=== PATIENT | female | born 1980 | race Caucasian/White ===

== ENCOUNTER 2020-06-02 09:00 | Outpatient (RCR) | payer OTHER, SELFPAY ==
--- NOTE | 2020-06-10 15:15 | MHC.PT.DC ---
[facility] [place] Office [place] Office [place] Office [address] Cheng Benjamin [address] [phone] F: [phone] F: [phone] F: [phone] F: [phone] Physical Therapy Discharge Report Diagnosis: Date of Surgery: N/A Date of Evaluation: 04/07/20 Date of Discharge: 06/02/20 Treatments to Date: 15 Cancellations to Date: 0 No Shows to Date: 1 Discharge Status: Achieved Goals Improved Function Independent with HEP Discharge Summary: The patient has improved in her pain severity, frequency of pain, and ability to tolerate therapeutic exercises and activities. She reported a statistically significant improvement on her self-reported outcome measure, LEFI. She has achieved all goals established at initial evaluation. She is independent with her home exercise program and has appropriate therabands. She is discharged from this physical therapy plan of care to her home exercise program. Electronically signed by: Pearl Horan PT, DPT Please sign and return to therapist. Thank you for your referral.
== END 2020-06-02 11:30 | disposition other institution (70) ==
LOC: HO.PT 09:00
PROVIDERS: Visit Provider Physician Assistant
DX: S82.311D Torus fracture of lower end of right tibia, subsequent encounter for fracture with routine healing (principal); X58.XXXD Exposure to other specified factors, subsequent encounter
CPT/HCPCS: 97110; 97112; 97530

== ENCOUNTER 2020-07-02 15:09 | Emergency (ER) | payer OTHER, SELFPAY ==
[2020-07-02 15:16] VITALS: PULSE 92; O2SAT 99
[2020-07-02 16:00] VITALS: BP 128/86; PULSE 92; RESP 16; TEMP 36.8; O2SAT 98; BMI 32.2
--- NOTE | 2020-07-02 16:27 | ED_ITS ---
HPI - Allergic Reaction General Chief complaint: Allergic Reaction Stated complaint: allergic reaction Time Seen by Provider: 07/02/20 16:22 History of Present Illness HPI narrative: Patient complains of itchy rash starting 6 days and worsening over the past 6 days, there is no shortness of breath no throat swelling, she is not sure what caused it and the symptoms are mild There is no fever no chills no cough Related Data Previous Rx's Medication Instructions Recorded cetirizine 10 mg PO DAILY PRN #14 cap 07/02/20 diphenhydramine HCl [Benadryl] 50 mg PO BEDTIME PRN #20 cap 07/02/20 prednisone 60 mg PO DAILY 4 Days #12 tab 07/02/20 Allergies Allergy/AdvReac Type Severity Reaction Status Date / Time No Known Allergies Allergy Unverified 04/29/20 18:47 Review of Systems Review of Systems: ROS is positive for rash There is no fever no chills no dizziness no weakness no swelling of the throat no difficulty speaking or breathing no chest pain no shortness of breath, no joint pains Yes all other systems are reviewed and are negative [facility] Past Medical History Source: nursing notes reviewed Medical History (Updated 07/02/20 @ 16:28 by DEUCE Christopher) Asthma Back pain Depression Fibromyalgia Social History Social History Smoking Status: Never smoker Use of substances other than those prescribed or required for medical reasons: No Advance Directives: No Advance Directives Information Provided: No Physical Exam Vital Signs: Vital Signs: Last Vital Signs Temp 98.2 F 07/02/20 16:00 Pulse 92 07/02/20 16:00 Resp 16 07/02/20 16:00 BP 128/86 07/02/20 16:00 Pulse Ox 98 07/02/20 16:00 Body Mass Index 32.2 General appearance comfortable cooperative no acute distress, A&O x3 The eyes are clear no redness or discharge The pharynx is clear with no redness exudate swelling, voice was normal, mucous membranes well hydrated The chest is clear to auscultation bilaterally with full symmetric with good breath sounds The heart no murmur The skin had an order cardial rash on arms cheeks legs, no evidence of cellulitis no petechiae Extremities full range of motion x4 Neuro no focal deficits Discharge Plan Discharge Clinical Impression: Urticaria Patient Disposition: Home, Self-Care Additional Instructions: Follow with primary care doctor in 2-3 days if not better Return to ER any time any worse condition or concerns Prescriptions: New cetirizine 10 mg capsule 10 mg PO DAILY PRN (Reason: allergy symptoms) Qty: 14 RF: 0 prednisone 20 mg tablet 60 mg PO DAILY 4 Days Qty: 12 RF: 0 diphenhydramine HCl [Benadryl] 25 mg capsule 50 mg PO BEDTIME PRN (Reason: itching) Qty: 20 RF: 0 Interventions: ED Discharge Assessment Last Done: 07/02/20 17:02 Discharge Date/Time: 07/02/20 17:02
[2020-07-02] MEDS: predniSONE 20 MG TABLET 60 MG PO (16:51)
[2020-07-02] MEDS: Loratadine 10 MG TABLET PO (16:51)
== END 2020-07-02 17:02 | disposition home or self-care (01) ==
PROVIDERS: Emergency Provider Internal Medicine
DX: L50.9 Urticaria, unspecified (principal); Z79.899 Other long term (current) drug therapy
CPT/HCPCS: 99283; 99284

== ENCOUNTER 2020-08-18 16:49 | Emergency (ER) | payer OTHER, SELFPAY ==
[2020-08-18 19:17] VITALS: BP 142/67; PULSE 84; TEMP 36.6; O2SAT 100; BMI 35.4
--- NOTE | 2020-08-18 19:30 | ED.GENADULT ---
HPI - General Adult General Chief complaint: General Medical Stated complaint: swelling,back pain Time Seen by Provider: 08/18/20 19:30 Source: patient Mode of arrival: ambulatory Limitations: no limitations History of Present Illness HPI narrative: Patient having leg edema for last 2 weeks facially on the evening time also noticed low back pain. Abdominal pain no shortness of breath no chest pain no liver problems no kidney problems in the past Onset (ago): week(s) (2) Related Data Previous Rx's Medication Instructions Recorded cetirizine 10 mg PO DAILY PRN #14 cap 07/02/20 diphenhydramine HCl [Benadryl] 50 mg PO BEDTIME PRN #20 cap 07/02/20 prednisone 60 mg PO DAILY 4 Days #12 tab 07/02/20 Allergies Allergy/AdvReac Type Severity Reaction Status Date / Time No Known Allergies Allergy Verified 08/18/20 19:16 Review of Systems Review of Systems: Constitutional : No Weight loss, No Fever, No Chills ENT/Mouth : No sore throat, No Rhinorrhea Eyes: No Eye Pain, No Swelling Cardiovascular : No Chest Pain, no palpitations Respiratory : No Cough, No Sputum, no shortness of breath Gastrointestinal : no Nausea, No Vomiting, No Diarrhea, No abdominal Pain, no black stools Genitourinary : No Dysuria, No Urinary Frequency Musculoskeletal : No joint pain, No Myalgias, No Joint Swelling Skin : No Skin Lesions, No rash Neuro : No Weakness, No Numbness, No Dizziness, No Headache Psych : No Anxiety/Panic, No Depression Heme/Lymph: No Bruising, No Lymphadenopathy Endocrine : No Polyuria, No Polydipsia All other systems reviewed and are negative [facility] Past Medical History Medical History Asthma Back pain Depression Fibromyalgia Social History Social History Smoking Status: Never smoker Use of substances other than those prescribed or required for medical reasons: No Advance Directives: No Advance Directives Information Provided: No Physical Exam Vital Signs: Vital Signs: Last Vital Signs Temp 97.9 F 08/18/20 19:17 Pulse 84 08/18/20 20:00 Resp 18 08/18/20 20:00 BP 112/76 08/18/20 20:00 Pulse Ox 100 08/18/20 20:00 Body Mass Index 35.4 Appearance: Alert. Oriented X3. No acute distress. Eyes: Pupils equal, round and reactive to light. ENT: Pharynx normal. Neck: Normal inspection. Neck supple. CVS: Normal heart rate and rhythm. Pulses normal. Respiratory: No respiratory distress. Breath sounds normal. Abdomen: Soft and nontender. Bowel sounds are present, no mass palpable, no CVA tenderness Skin: Skin warm and dry. Normal skin color. Normal skin turgor. Extremities: 2+ lower extremity edema. Neuro: Oriented X 3. No motor deficit. No sensory deficit. Course Course Course Narrative: Patient with pitting lower extremity edema with no findings of congestive heart failure or liver problems likely orthostatic dependent pedal edema with this prescribe her hydrochlorothiazide daily Medical Decision Making Lab Data Result diagrams: 08/18/20 20:12 08/18/20 20:12 Labs: Lab Results 08/18/20 08/18/20 08/18/20 Range/Units 20:12 20:12 20:12 WBC 11.2 H (4.8-10.8) X10*3/uL RBC 4.27 (4.20-5.50) X10*6/uL Hgb 11.5 L (12.0-16.0) g/dl Hct 36.6 L (37-47) % MCV 85.7 (80-98) fL MCH 26.9 L (27.0-33.0) pg MCHC 31.4 (31.0-35.0) g/dl RDW 14.6 (11.0-16.0) % Plt Count 243 (160-400) X10*3/uL MPV 10.4 (9.4-12.3) fL Immature Gran % (Auto) 0.3 (0.0-0.4) % Neut % (Auto) 65.1 (45-73) % Lymph % (Auto) 26.4 (20-40) % Cottle % (Auto) 5.5 (2-11) % Eos % (Auto) 2.5 (0-4) % Baso % (Auto) 0.2 (0-2) % Lymph # (Auto) 3.0 (1.2-4.9) X10*3/uL Cottle # (Auto) 0.6 (0.1-1.2) X10*3/uL Eos # (Auto) 0.3 (0.0-0.4) X10*3/uL Baso # (Auto) 0.0 (0.0-0.2) X10*3/uL Abs Immat Gran (auto) 0.03 (0.00-0.03) X10*3/uL Absolute Neuts (auto) 7.3 (2.0-8.3) X10*3/uL Absolute Nucleated RBC 0.000 (0.0-0.012) X10*3/uL Nucleated RBC % (auto) 0.0 (0.0-0.2) /100WBC Hold Blue Top SEE NOTE Sodium 139 (135-145) mmol/L Potassium 4.1 (3.3-5.1) mmol/l Chloride 106 (96-108) mmol/L Carbon Dioxide 24 (22-29) mmol/L Anion Gap 13 (12-20) BUN 13 (9-16) mg/dL Creatinine 0.91 (0.5-1.4) mg/dL Estim Creat Clear Calc 100.1 Estimated GFR > 60 Random Glucose 141 H (60-115) mg/dL Calcium 8.3 L (8.4-10.2) mg/dL Total Bilirubin 0.2 (0.0-1.0) mg/dL AST 20 (5-31) U/L ALT 21 (0-31) U/L Alkaline Phosphatase 104 (39-117) U/L B-Natriuretic Peptide (<100) pg/mL Total Protein 6.1 L (6.5-8.0) g/dL Albumin 3.7 (3.5-5.0) g/dL TSH 1.88 (0.32-4.0) uIU/mL Urine Color Urine Appearance Urine pH (5.0-8.0) Ur Specific [place] (1.005-1.025) Urine Protein (NEG-TRACE) MG/DL Urine Glucose (UA) (NEG) MG/DL Urine Ketones (NEG) MG/DL Urine Blood (NEG) Urine Nitrite (NEG) Ur Leukocyte Esterase (NEG) Urine Test (NEGATIVE) 08/18/20 08/18/20 Range/Units 20:12 20:12 WBC (4.8-10.8) X10*3/uL RBC (4.20-5.50) X10*6/uL Hgb (12.0-16.0) g/dl Hct (37-47) % MCV (80-98) fL MCH (27.0-33.0) pg MCHC (31.0-35.0) g/dl RDW (11.0-16.0) % Plt Count (160-400) X10*3/uL MPV (9.4-12.3) fL Immature Gran % (Auto) (0.0-0.4) % Neut % (Auto) (45-73) % Lymph % (Auto) (20-40) % Cottle % (Auto) (2-11) % Eos % (Auto) (0-4) % Baso % (Auto) (0-2) % Lymph # (Auto) (1.2-4.9) X10*3/uL Cottle # (Auto) (0.1-1.2) X10*3/uL Eos # (Auto) (0.0-0.4) X10*3/uL Baso # (Auto) (0.0-0.2) X10*3/uL Abs Immat Gran (auto) (0.00-0.03) X10*3/uL Absolute Neuts (auto) (2.0-8.3) X10*3/uL Absolute Nucleated RBC (0.0-0.012) X10*3/uL Nucleated RBC % (auto) (0.0-0.2) /100WBC Hold Blue Top Sodium (135-145) mmol/L Potassium (3.3-5.1) mmol/l Chloride (96-108) mmol/L Carbon Dioxide (22-29) mmol/L Anion Gap (12-20) BUN (9-16) mg/dL Creatinine (0.5-1.4) mg/dL Estim Creat Clear Calc Estimated GFR Random Glucose (60-115) mg/dL Calcium (8.4-10.2) mg/dL Total Bilirubin (0.0-1.0) mg/dL AST (5-31) U/L ALT (0-31) U/L Alkaline Phosphatase (39-117) U/L B-Natriuretic Peptide < 10 (<100) pg/mL Total Protein (6.5-8.0) g/dL Albumin (3.5-5.0) g/dL TSH (0.32-4.0) uIU/mL Urine Color YELLOW Urine Appearance CLEAR Urine pH 6.0 (5.0-8.0) Ur Specific [place] 1.025 (1.005-1.025) Urine Protein NEG (NEG-TRACE) MG/DL Urine Glucose (UA) NEG (NEG) MG/DL Urine Ketones NEG (NEG) MG/DL Urine Blood NEG (NEG) Urine Nitrite NEG (NEG) Ur Leukocyte Esterase NEG (NEG) Urine Test NEGATIVE (NEGATIVE) Discharge Plan Discharge Prescriptions: No Action cetirizine 10 mg capsule 10 mg PO DAILY PRN (Reason: allergy symptoms) Qty: 14 RF: 0 prednisone 20 mg tablet 60 mg PO DAILY 4 Days Qty: 12 RF: 0 diphenhydramine HCl [Benadryl] 25 mg capsule 50 mg PO BEDTIME PRN (Reason: itching) Qty: 20 RF: 0
[2020-08-18 20:00] VITALS: BP 112/76; PULSE 84; RESP 18; O2SAT 100
[2020-08-18 20:20] LABS: Basophils Percent Auto 0.2 % (0-2); Eosinophils Absolute Auto 0.3 X10*3/uL (0.0-0.4); Eosinophils Percent Auto 2.5 % (0-4); Hematocrit 36.6 % (37-47); Hemoglobin 11.5 g/dl (12.0-16.0); Imm Gran Abs Auto 0.03 X10*3/uL (0.00-0.03); Imm Gran Pct Auto 0.3 % (0.0-0.4); Lymphocytes Percent Auto 26.4 % (20-40); MANUAL DIFF FLAG NO; Mean Corpuscular HGB Conc 31.4 g/dl (31.0-35.0); Mean Corpuscular Hemoglobin 26.9 pg (27.0-33.0); Mean Corpuscular Volume 85.7 fL (80-98); Mean Platelet Volume 10.4 fL (9.4-12.3); Monocytes Absolute Auto 0.6 X10*3/uL (0.1-1.2); Monocytes Percent Auto 5.5 % (2-11); Neutrophils Absolute Auto 7.3 X10*3/uL (2.0-8.3); Neutrophils Percent Auto 65.1 % (45-73); Platelet Count 243 X10*3/uL (160-400); Red Blood Count 4.27 X10*6/uL (4.20-5.50); Red Cell Distribution Width 14.6 % (11.0-16.0); White Blood Count 11.2 X10*3/uL (4.8-10.8)
[2020-08-18 20:22] LABS: Glucose Urine UA NEG (NEG); Leukocyte Esterase Urine NEG (NEG); Nitrite Urine NEG (NEG); Specific Gravity - Urine 1.025 (1.005-1.025); Urine Blood NEG (NEG); Urine Ketones NEG (NEG); Urine Protein NEG (NEG-TRACE)
[2020-08-18 20:23] LABS: Appearance Urine CLEAR; Color Urine YELLOW
[2020-08-18 20:26] LABS: UPreg QC Valid YES; Urine Pregnancy NEGATIVE (NEGATIVE)
[2020-08-18 20:54] LABS: Alanine Aminotransferase 21 U/L (0-31); Albumin Level 3.7 g/dL (3.5-5.0); Alkaline Phosphatase 104 U/L (39-117); Anion Gap 13 (12-20); Aspartate Amino Transferase 20 U/L (5-31); Bilirubin Total 0.2 mg/dL (0.0-1.0); Blood Urea Nitrogen 13 mg/dL (9-16); Calcium 8.3 mg/dL (8.4-10.2); Carbon Dioxide 24 mmol/L (22-29); Chloride 106 mmol/L (96-108); Creatinine Clr Calc Pharmacy 100.1; Estimated Glomerular Filt Rate > 60; Glucose Random 141 mg/dL (60-115); Potassium 4.1 mmol/l (3.3-5.1); Sodium 139 mmol/L (135-145); Total Protein 6.1 g/dL (6.5-8.0)
[2020-08-18 20:59] LABS: B Type Natriuretic Peptide < 10 pg/mL (<100)
[2020-08-18 21:14] LABS: Thyroid Stimulating Hormone 1.88 uIU/mL (0.32-4.0)
[2020-08-18 21:59] VITALS: BP 110/74; PULSE 82; RESP 17; TEMP 36.4; O2SAT 99
== END 2020-08-18 22:01 | disposition home or self-care (01) ==
PROVIDERS: Emergency Provider Internal Medicine
DX: M54.5 Low back pain (principal); Z79.899 Other long term (current) drug therapy
CPT/HCPCS: 36415; 80053; 81003; 81025; 83880; 84443; 85025; 99283; 99284

== ENCOUNTER 2021-02-08 13:11 | Emergency (ER) | payer OTHER, SELFPAY ==
[2021-02-08 13:44] VITALS: BP 127/80; PULSE 79; RESP 18; TEMP 36.6; O2SAT 100; BMI 33.8
--- NOTE | 2021-02-08 16:31 | ED.GENADULT ---
HPI - General Adult General Chief complaint: General Medical Stated complaint: neck injury Time Seen by Provider: 02/08/21 16:21 Source: patient Mode of arrival: ambulatory History of Present Illness HPI narrative: 40-year-old female with a past medical history of asthma, back pain, depression, fibromyalgia, presenting to the ED complaining of left-sided neck /ear pain radiating to head/face x1 day. Reports bump/ inflamed lymph node beneath ear. Denies drainage from ear, hearing loss, difficulty/ pain with swallowing, fever, chills, neck trauma/ falls or injury. Admits pain worse with neck movement to right side Related Data Previous Rx's Medication Instructions Recorded cetirizine 10 mg PO DAILY PRN #14 cap 07/02/20 diphenhydramine HCl [Benadryl] 50 mg PO BEDTIME PRN #20 cap 07/02/20 prednisone 60 mg PO DAILY 4 Days #12 tab 07/02/20 hydrochlorothiazide 25 mg PO QAM #30 tab 08/18/20 acetaminophen [Tylenol Extra 500 mg PO Q6H PRN #20 tab 02/08/21 Strength] amoxicillin-pot clavulanate 1 tab PO Q12H 7 Days #14 tab 02/08/21 [Augmentin] fluticasone propionate [Flonase 2 spray INTRANASAL DAILY #16 g 02/08/21 Allergy Relief] naproxen 500 mg PO BID PRN 10 Days #20 tab 02/08/21 Allergies Allergy/AdvReac Type Severity Reaction Status Date / Time No Known Allergies Allergy Verified 08/18/20 19:16 Review of Systems Review of Systems: Constitutional: No Fever, No Chills ENT/Mouth: + Ear Pain, No Nasal Congestion, No Sinus Pain, No Hoarseness, No sore throat, No Swallowing Difficulty Cardiovascular: No Chest Pain, No SOB Respiratory: No Cough, No Sputum Musculoskeletal: +neck pain Skin: No Skin Lesions, No rash Neuro: No Weakness, No Numbness Yes all other systems are reviewed and are negative [facility] Past Medical History Attestation statement: The following information was validated with the patient. Medical History Asthma Back pain Depression Fibromyalgia Social History Social History Advance Directives: No Advance Directives Information Provided: No Patient : No Physical Exam Vital Signs: Vital Signs: Last Vital Signs Temp 97.9 F 02/08/21 13:44 Pulse 79 02/08/21 13:44 Resp 18 02/08/21 13:44 BP 127/80 02/08/21 13:44 Pulse Ox 100 02/08/21 13:44 Body Mass Index 33.8 Const: General: cooperative, healthy appearing, comfortable and no acute distress Orientation/consciousness: patient oriented x3 Limitations: no limitations HENMT: Other: left TM slightly cloudy, no erythema, no bulging, no drainage right TM WNL Head: Yes normal to inspection Ears: hearing grossly normal bilaterally, normal mastoids bilaterally and periauricular adenopathy on the left ( tender to palpation. No erythema) General nose exam: Normal external nose present and Normal nares present Face and sinus: Yes normal facial exam Mouth: Normal oral and palatal mucosa present Throat: Yes posterior oropharynx normal, Yes tonsils normal, Yes uvula midline and No peritonsillar mass Eyes: General: appearance normal, both eyes and all related structures EOM: EOMs intact bilaterally Neck: Other: no midline cervical spinous tenderness. No left-sided neck swelling / erythema or deformity. left side of neck MSK tenderness to palpation pain elicited on rightward movement of neck Neck: Yes normal visual inspection, Yes no meningeal signs, Yes supple and No anterior neck swelling Chest: Chest palpation & inspection: normal inspection of the chest Resp: Effort & Inspection: normal respiratory effort Auscultation: clear to auscultation bilaterally Cardio: Rate: regular rate Skin: Rashes: no rashes Wounds: no wounds Neuro: General: patient oriented x3 and no meningeal signs Extrem: General: Yes normal to inspection Medical Decision Making MDM Narrative Medical decision making narrative: 40-year-old female with a past medical history of asthma, back pain, depression, fibromyalgia, presenting to the ED complaining of left-sided neck /ear pain radiating to head/face x1 day. on exam VSS, NAD/ well-appearing, physical exam as above. Concern for early otitis media vs unilateral lymphadenopathy vs MSK pain. Low concern for mastoiditis Plan: 1st dose of Augmentin given in the ED Discharge Plan Discharge Clinical Impression: Lymphadenopathy Patient Disposition: Home, Self-Care Instructions: Lymphadenopathy (ED) Additional Instructions: you have one-sided lymphadenopathy, in her eardrum is cloudy which could likely represent an early infection. Augmentin as an antibiotic, take as prescribed. In addition Flonase nasal decongestion spray. Naproxen as an anti-inflammatory/ pain medication, take with food. In addition take Tylenol. Follow up with her primary care doctor In the next couple days. If her symptoms persist or worsen, he develops fever, drainage from a here, swelling, redness, or pain as worsening please return to the ED tiene linfadenopat?a unilateral, el t?mpano est? turbio, lo que probablemente podr?a representar nicole infecci?n temprana. Augmentin chika antibi?tate, jose seg?n lo prescrito. Adem?s Flonase spray nasal descongestionante. El naproxeno chika medicamento antiinflamatorio / analg?sico, t?spencer con las comidas. Adem?s, tome Tylenol. Aziza un seguimiento con connell m?dico de atenci?n primaria en los pr?ximos d?as. Si jonna s?ntomas persisten o empeoran, ?l desarrolla fiebre, supuraci?n de un lugar, hinchaz?n, enrojecimiento o dolor a medida que empeora, por favor regrese al servicio de urgencias. Prescriptions: New acetaminophen [Tylenol Extra Strength] 500 mg tablet 500 mg PO Q6H PRN (Reason: pain or fever) Qty: 20 RF: 0 fluticasone propionate [Flonase Allergy Relief] 50 mcg/actuation spray,suspension 2 spray intranasal DAILY Qty: 16 RF: 0 naproxen 500 mg tablet 500 mg PO BID PRN (Reason: pain) 10 Days Qty: 20 RF: 0 amoxicillin-pot clavulanate [Augmentin] 875-125 mg tablet 1 tab PO Q12H 7 Days Qty: 14 RF: 0 No Action cetirizine 10 mg capsule 10 mg PO DAILY PRN (Reason: allergy symptoms) Qty: 14 RF: 0 prednisone 20 mg tablet 60 mg PO DAILY 4 Days Qty: 12 RF: 0 diphenhydramine HCl [Benadryl] 25 mg capsule 50 mg PO BEDTIME PRN (Reason: itching) Qty: 20 RF: 0 hydrochlorothiazide 25 mg tablet 25 mg PO QAM Qty: 30 RF: 0 Referrals: Physician,Unknown [Primary Care Provider] - 2 days Print Language: Japanese
[2021-02-08] MEDS: Amoxicillin/Potassium Clav 875 MG TABLET PO (16:55)
== END 2021-02-08 16:57 | disposition home or self-care (01) ==
PROVIDERS: Emergency Provider Emergency Medicine Emergency Medical Services
DX: R59.1 Generalized enlarged lymph nodes (principal); J45.909 Unspecified asthma, uncomplicated
CPT/HCPCS: 99283

== ENCOUNTER 2023-08-18 12:52 | Emergency (ER) | payer OTHER, SELFPAY ==
[2023-08-18 13:29] VITALS: BP 132/81; PULSE 84; RESP 18; TEMP 36.8; O2SAT 100; BMI 21.9
--- NOTE | 2023-08-18 13:31 | ED.SKABFB ---
HPI - Skin/Abscess/Foreign Bdy General Chief complaint: Skin/Abscess/Foreign Body Stated complaint: rash Time Seen by Provider: 08/18/23 15:25 Source: patient and drafter Mode of arrival: ambulatory Limitations: language barrier History of Present Illness HPI narrative: Patient is a 42 year old assigned female at with no reported medical history presenting to the emergency department today with pain after shaving in the lower vaginal area. Patient states that 3 days ago she was shaving and has had pain in the lower right vaginal area. Patient denies any dizziness, lightheadedness, abdominal pain, nausea, vomiting, fever, chills, blurry vision, double vision, loss of vision, chest pain, difficulty breathing, shortness of breath, back pain, night sweats, pain with urination, increased urinary frequency, increased urinary urgency, blood in her urine or stool, syncope or a near syncopal episode, bowel incontinence, bladder incontinence, bowel retention, bladder retention, or any other complaints at this time. Onset (ago): day(s) (3) Location: genitals Severity: mild Relieving factors: none Exacerbating factors: none Context: none Associated symptoms: denies other symptoms Treatments prior to arrival: none Related Data Previous Rx's Medication Instructions Recorded cetirizine 10 mg capsule 10 mg PO DAILY PRN allergy 07/02/20 symptoms #14 caps diphenhydramine HCl 25 mg capsule 50 mg (2 x 25 mg) PO BEDTIME PRN 07/02/20 (Benadryl) itching #20 caps prednisone 20 mg tablet 60 mg (3 x 20 mg) PO DAILY 4 days 07/02/20 #12 tabs hydrochlorothiazide 25 mg tablet 25 mg PO QAM #30 tabs 08/18/20 acetaminophen 500 mg tablet 500 mg PO Q6H PRN pain or fever 02/08/21 (Tylenol Extra Strength) #20 tabs amoxicillin 875 mg-potassium 1 tab PO Q12H 7 days #14 tabs 02/08/21 clavulanate 125 mg tablet (Augmentin) fluticasone propionate 50 2 spray intranasal DAILY #16 grams 02/08/21 mcg/actuation nasal spray,suspension (Flonase Allergy Relief) naproxen 500 mg tablet 500 mg PO BID PRN pain 10 days #20 02/08/21 tabs cefuroxime axetil 250 mg tablet 250 mg PO BID 7 days #14 tabs 08/18/23 Allergies Allergy/AdvReac Type Severity Reaction Status Date / Time latex Allergy Rash Verified 08/18/23 13:29 lettuce Allergy Hives Verified 08/18/23 13:29 mussels Allergy Rash Verified 08/18/23 13:29 onion Allergy Hives Verified 08/18/23 13:29 pineapple Allergy Hives Verified 08/18/23 13:29 Review of Systems Constitutional: Constitutional: Reports no additional constitutional complaints, Denies chills, Denies fever(s) and Denies night sweats Eyes: Eyes: Reports no additional eye complaints, Denies blurry vision, Denies change in vision, Denies diplopia, Denies eye discharge, Denies loss of vision and Denies eye pain ENT: Denies dizziness Cardiovascular: Cardiovascular: Reports no additional cardiovascular complaints, Denies chest pain, Denies lightheadedness, Denies Loss of Consciousness and Denies dyspnea Respiratory: Respiratory: Reports no additional respiratory complaints and Denies dyspnea Gastrointestinal: Gastrointestinal: Reports no additional gastrointestinal complaints, Denies abdominal pain, Denies melena, Denies hematochezia, Denies change in bowel habits and Denies change in stool character Genitourinary: Genitourinary: Denies hematuria, Denies urinary frequency, Denies dysuria, Denies urinary incontinence, Denies urinary hesitancy and Denies urinary urgency Comments: right lower vaginal pain after shaving Musculoskeletal: Musculoskeletal: Reports no additional musculoskeletal complaints, Denies numbness and Denies tingling Neurologic: Denies dizziness, Denies loss of vision, Denies numbness and Denies tingling Psychiatric: Psychiatric: Reports no additional psychiatric complaints Endocrine: Endocrine: Reports no additional endocrine complaints Hematologic/Lymphatic: Hematologic/Lymphatic: Reports no additional hematologic/lymphatic complaints Allergic/Immunologic: Allergic/Immunologic: Reports no additional allergic/immunologic complaints PMFSH Past Medical History Attestation statement: The following information was validated with the patient. Source: old records reviewed and nursing notes reviewed Onset Date is defined in the Problem List Problems that require an onset date and time if occurred within 24 hrs of arrival to the ED Aortic Dissection and Rupture; Neurologic impairment; Cardiopulmonary Arrest; Endotracheal Intubation; Insertion or Replacement of Mechanical Circulatory Assist Device Medical History Depression Back pain Fibromyalgia Asthma Social History Social History Advance Directives: No Advance Directives Information Provided: No Physical Exam Vital Signs: Vital Signs: Last Vital Signs Temp 98.2 F 08/18/23 13:29 Pulse 84 08/18/23 13:29 Resp 18 08/18/23 13:29 BP 132/81 08/18/23 13:29 Pulse Ox 100 08/18/23 13:29 O2 Del Method Room Air 08/18/23 13:29 BMI result Body Mass Index 21.9 Const: General: cooperative, no acute distress, alert and awake Nutritional Appearance: well nourished Orientation/consciousness: patient oriented x3 Limitations: no limitations HEENT: Head: Yes normal to inspection and Yes atraumatic Ears: hearing grossly normal bilaterally and external ears normal General nose exam: Normal external nose present, no nasal discharge noted and no epistaxis Face and sinus: Yes normal facial exam, No abrasion and No laceration Mouth: Normal oral and palatal mucosa present, no drooling and no muffled voice Eyes: General: appearance normal, both eyes and all related structures Periorbital: periorbital findings normal Eyelids: Yes eyelids normal Conjunctivae: conjunctivae normal Pupils: Equal, round and reactive pupils present EOM: EOMs intact bilaterally Neck: Neck: Yes normal visual inspection, Yes full ROM and Yes no lymphadenopathy Chest: Chest palpation & inspection: normal inspection of the chest Resp: Effort & Inspection: normal respiratory effort and able to speak in complete sentences GI: Inspection: Yes normal to inspection : External Female Exam: other (right labial erythema with minimal warmth, no abscess) Neuro: General: patient oriented x3 and moves all extremities Cranial nerves: Yes Equal, round and reactive pupils present Cognition (Neuro): normal cognition Motor exam (neuro): 5/5 motor strength present throughout Sensory Exam: Normal double simultaneous stimulation for sensation Coordination: [id number] test normal Extrem: General: Yes normal to inspection, Yes full ROM and Yes capillary refill normal Psych: Appearance: grossly normal Mental Status: mental status grossly normal Affect: normal affect Attitude: cooperative Thought process: Normal thought process present Thought content: Normal thought content present Insight: Good insight present (Psych) Course Course Course Narrative: This is a rapid medical exam. Defer additional HPI, ROS, PE to prior provider. 42-year-old female with history of fibromyalgia, asthma here with complaints of concern for abscess the perineum area for 3 days. No fevers, chills. Unable to visualize in triage. VSS Medical Decision Making Medical Decision Making MDM Narrative: Patient is a 42 year old assigned female at with no reported medical history presenting to the emergency department today with right lower vaginal pain. Patient's physical exam was as noted in the physical exam portion of this note. I explained my physical exam findings to the patient. I answered all questions asked by the patient. I stressed the importance of the patient taking her medication as prescribed. I stressed the importance of the patient following up with her primary care provider. I stressed the importance of the patient returning to the emergency department immediately if her symptoms were to worsen or if she were to develop any dizziness, shortness of breath, difficulty breathing, chest pain, blurry vision, loss of vision, nausea, vomiting, abdominal pain, fever, chills, back pain, or any other complaints. Patient verbalized agreement and understanding with this treatment plan and discharge. Differential Diagnosis Differential Diagnoses: The differential diagnosis associated with the presentation includes Folliculitis Abscess Razor burn Admission/Observation Consideration of admission/observation: Escalation of care including admission/observation considered Patient would have been admitted to the hospital had her clinical presentation warranted hospital admission. Prescription Management I considered prescription management with: Antibiotic (patient prescribed an antibiotic to cover for folliculitis) Discharge Plan Discharge Clinical Impression: Folliculitis Patient Disposition: Home, Self-Care Instructions: Folliculitis (ED) Additional Instructions: Follow up with your primary care provider. Return to the emergency department immediately if your symptoms worsen or if you develop any dizziness, shortness of breath, difficulty breathing, chest pain, blurry vision, loss of vision, nausea, vomiting, abdominal pain, fever, chills, back pain, or any other complaints. Aziza un seguimiento con connell proveedor de atenci?n primaria. Regrese al departamento de emergencias inmediatamente si jonna s?ntomas empeoran o si presenta mareos, dificultad para respirar, dificultad para respirar, dolor en el pecho, visi?n borrosa, p?rdida de la visi?n, n?useas, v?mitos, dolor abdominal, fiebre, escalofr?os, dolor de espalda o cualquier otras quejas. Prescriptions: New cefuroxime axetil 250 mg tablet 250 mg PO BID 7 Days Qty: 14 0RF No Action cetirizine 10 mg capsule 10 mg PO DAILY PRN (Reason: allergy symptoms) Qty: 14 0RF prednisone 20 mg tablet 60 mg PO DAILY 4 Days Qty: 12 0RF diphenhydramine HCl [Benadryl] 25 mg capsule 50 mg PO BEDTIME PRN (Reason: itching) Qty: 20 0RF hydrochlorothiazide 25 mg tablet 25 mg PO QAM Qty: 30 0RF acetaminophen [Tylenol Extra Strength] 500 mg tablet 500 mg PO Q6H PRN (Reason: pain or fever) Qty: 20 0RF fluticasone propionate [Flonase Allergy Relief] 50 mcg/actuation spray,suspension 2 spray intranasal DAILY Qty: 16 0RF Rx Instructions: administer into each nostril naproxen 500 mg tablet 500 mg PO BID PRN (Reason: pain) 10 Days Qty: 20 0RF amoxicillin-pot clavulanate [Augmentin] 875-125 mg tablet 1 tab PO Q12H 7 Days Qty: 14 0RF Referrals: Holly Warner NP [Primary Care Provider] - Stand Alone Forms: Work/School Release Interventions: ED Discharge Assessment Last Done: 08/18/23 16:10 Discharge Date/Time: 08/18/23 16:11 Print Language: Turkish
== END 2023-08-18 16:11 | disposition home or self-care (01) ==
PROVIDERS: Emergency Provider Student in an Organized Health Care Education/Training Program; PCP Nurse Practitioner Family
DX: L73.9 Follicular disorder, unspecified (principal); R10.31 Right lower quadrant pain
CPT/HCPCS: 99283